=== PATIENT | male | born 1955 | race Caucasian/White ===

== ENCOUNTER 2016-12-08 18:25 | Emergency (ER) | payer BC ==
[2016-12-08 18:44] VITALS: TEMP 98
[2016-12-08] MEDS ORDERED: ONDANSETRON 4 MG/2 ML VIAL IVP STA (19:23)
[2016-12-08] MEDS ORDERED: KETOROLAC 30 MG/ML 1 ML VIAL IVP STA (19:23)
[2016-12-08] MEDS ORDERED: SODIUM CHLORIDE 0.9% 2,000 ML IV STA (19:23)
[2016-12-08] MEDS ORDERED: HYDROmorphone 1 MG/ML 1 ML SYRINGE IVP STA (19:23)
[2016-12-08 20:04] LABS: Basophils % (A) 1 %; CH 29.8; CHCM 32.7; Eosinophils # (A) 0.1 k/uL (0-0.7); Eosinophils % (A) 4 %; HCT 44.5 % (39.0-53.0); HDW 2.49; HGB 14.6 gm/dL (13.0-17.5); Luc # (Auto) 0.07; Luc % (Auto) 2; Lymphocytes # (A) 0.8 k/uL (1.0-4.8); Lymphocytes % (A) 25 %; MCH 30.1 pg (25.0-35.0); MCHC 32.8 g/dL (31.0-37.0); MCV 91.5 fL (80.0-100.0); Monocytes # (A) 0.2 k/uL (0-1.0); Monocytes % (A) 7 %; Neutrophils % (A) 61 %; RBC 4.86 m/uL (4.30-5.90); RDW 13.1 % (11.5-15.5); WBC 3.2 k/uL (3.8-10.6); WBC (Perox) 3.07
[2016-12-08 20:05] LABS: Appearance,Urine Clear (Clear); Bilirubin,Urine Negative (Negative); Glucose,Urine (UA) Negative (Negative); Ketones,Urine Negative (Negative); Leukocyte Esterase,Urine Negative (Negative); Nitrite,Urine Negative (Negative); Protein,Urine Negative (Negative); UA Billing (MACRO vs. MICRO) CHEM; Urobilinogen,Urine <2.0 mg/dL (<2.0)
--- NOTE | 2016-12-08 20:14 | XR ---
EXAMINATION TYPE: XR KUB DATE OF EXAM: 12/08/2016 COMPARISON: NONE HISTORY: Left-sided flank pain with history of nephrolithiasis TECHNIQUE: Single upright abdominal radiograph was obtained. FINDINGS: Slight dextroscoliotic curvature of the thoracolumbar spine is seen with degenerative valentin es at the lumbosacral junction. No radiopaque calcifications are seen within the abdomen or pelvis al though bowel gas partially obscures the renal shadows. Moderate amount of retained stool is seen thro ughout the ascending colon and hepatic flexure. Bowel is nondilated. IMPRESSION: 1. No evidence of radiopaque calculi although the renal shadows are partially obscured by overlying b owel. 2. Moderate amount of retained colonic stool in nondilated bowel.
[2016-12-08 20:19] LABS: ALT 45 U/L (21-72); AST 39 U/L (17-59); Alkaline Phosphatase 63 U/L (38-126); Amylase 86 U/L (30-110); Anion Gap 11 mmol/L; Blood Urea Nitrogen 23 mg/dL (9-20); Calcium 9.8 mg/dL (8.4-10.2); Carbon Dioxide 26 mmol/L (22-30); Chloride 104 mmol/L (98-107); Glucose 91 mg/dL (74-99); Non-African American GFR(MDRD) >60 (>60 ml/min/1.73 sqM); Potassium 4.7 mmol/L (3.5-5.1); Sodium 141 mmol/L (137-145); Total Bilirubin 0.8 mg/dL (0.2-1.3); Total Protein 7.1 g/dL (6.3-8.2)
--- NOTE | 2016-12-08 20:40 | ED ---
Abdominal Pain HPI - General Chief Complaint: Abdominal Pain Stated Complaint: POSS KIDNEY STONE Time Seen by Provider: 12/08/16 19:23 Source: patient, RN notes reviewed, old records reviewed Mode of arrival: ambulatory Limitations: no limitations - History of Present Illness Initial Comments: Pleasant 61 year old male with left flank pain for one week, reports he was doing lifting and hurt his right side of the back one week ago. Patient reports that he also has kidney stones and this pain feels similiar to kidney stones. Patient reports pain can come and go, and occasionally worse with position. Denies any fever, chills, nausea, vomiting, abdominal pain, chest pain, shortness of breath, changes in bowel or urination, peripheral paresthesias - Related Data Home Medications Medication Instructions Recorded Confirmed Adalimumab [Humira Crohn's] 40 mg SQ Q14D 12/08/16 12/08/16 rOPINIRole HCL [Requip] 3 mg PO HS 12/08/16 12/08/16 Previous Rx's Medication Instructions Recorded HYDROcodone/APAP 10-325MG [[place] 1 tab PO Q6H PRN #20 tab 12/08/16 10-325] Ketorolac [Toradol] 10 mg PO Q6HR #15 tab 12/08/16 Tamsulosin [Flomax] 0.4 mg PO DAILY #7 cap 12/08/16 Allergies Allergy/AdvReac Type Severity Reaction Status Date / Time wheat Allergy Dyspnea Verified 12/08/16 19:19 Review of Systems ROS Statement: Those systems with pertinent positive or pertinent negative responses have been documented in the HPI. ROS Other: All systems not noted in ROS Statement are negative. Past Medical History Past Medical History: No Reported History History of Any Multi-Drug Resistant Organisms: None Reported Additional Past Surgical History / Comment(s): shoulder lithotripsy Past Psychological History: No Psychological Hx Reported Smoking Status: Never smoker Past Alcohol Use History: Rare Past Drug Use History: None Reported General Exam - General Exam Comments Initial Comments: Well appearing 61 year old mle, no distress. Limitations: no limitations General appearance: alert, in no apparent distress Head exam: Present: atraumatic, normocephalic, normal inspection Eye exam: Present: normal appearance, PERRL, EOMI. Absent: scleral icterus, conjunctival injection, periorbital swelling ENT exam: Present: normal exam, mucous membranes moist Neck exam: Present: normal inspection. Absent: tenderness, meningismus, lymphadenopathy Respiratory exam: Present: normal lung sounds bilaterally. Absent: respiratory distress, wheezes, rales, rhonchi, stridor Cardiovascular Exam: Present: regular rate GI/Abdominal exam: Present: soft, normal bowel sounds. Absent: distended, tenderness, guarding, rebound, rigid Extremities exam: Present: normal inspection, full ROM, normal capillary refill. Absent: tenderness, pedal edema, joint swelling, calf tenderness Back exam: Present: normal inspection Neurological exam: Present: alert, oriented X3, CN II-XII intact Psychiatric exam: Present: normal affect, normal mood Skin exam: Present: warm, dry, intact, normal color. Absent: rash Course Vital Signs 12/08/16 12/08/16 18:41 20:55 Temperature 98.0 F Pulse Rate 78 85 Respiratory 18 16 Rate Blood Pressure 139/87 127/65 O2 Sat by Pulse 96 98 Oximetry Medical Decision Making - Medical Decision Making Pleasant 61 year old male with left flank pain for one week, reports he was doing lifting and hurt his right side of the back one week ago. Patient reports that he also has kidney stones and this pain feels similiar to kidney stones. Patient reports pain can come and go, and occasionally worse with position. Lab work is negative. PAtient given toradol and .5 dilaudid. PAtient given IV fluids. Discussed that negative blood work and no hematuria, patient likely has muscle skelettal related pain vs. kidney stone. Patient informed that we can preform cat scan, and patient refuses due to radiation. Risk and benefits discussed, and informed patient I can treat for kidney stone, similiarly for muscle back pain. Patient agrees to be discharged home and forgo CT. Patient agrees with treatment plan and will comply, discharged with pain medication, flomax for 2 days. - Lab Data Result diagrams: 12/08/16 19:40 12/08/16 19:40 Lab Results 12/08/16 12/08/16 12/08/16 Range/Units 19:40 19:40 19:40 WBC 3.2 L (3.8-10.6) k/uL RBC 4.86 (4.30-5.90) m/uL Hgb 14.6 (13.0-17.5) gm/dL Hct 44.5 (39.0-53.0) % MCV 91.5 (80.0-100.0) fL MCH 30.1 (25.0-35.0) pg MCHC 32.8 (31.0-37.0) g/dL RDW 13.1 (11.5-15.5) % Plt Count 215 (150-450) k/uL Neutrophils % 61 % Lymphocytes % 25 % Monocytes % 7 % Eosinophils % 4 % Basophils % 1 % Neutrophils # 2.0 (1.3-7.7) k/uL Lymphocytes # 0.8 L (1.0-4.8) k/uL Monocytes # 0.2 (0-1.0) k/uL Eosinophils # 0.1 (0-0.7) k/uL Basophils # 0.0 (0-0.2) k/uL Sodium 141 (137-145) mmol/L Potassium 4.7 (3.5-5.1) mmol/L Chloride 104 (98-107) mmol/L Carbon Dioxide 26 (22-30) mmol/L Anion Gap 11 mmol/L BUN 23 H (9-20) mg/dL Creatinine 1.20 (0.66-1.25) mg/dL Est GFR (MDRD) Af Amer >60 (>60 ml/min/1.73 sqM) Est GFR (MDRD) Non-Af >60 (>60 ml/min/1.73 sqM) Glucose 91 (74-99) mg/dL Calcium 9.8 (8.4-10.2) mg/dL Total Bilirubin 0.8 (0.2-1.3) mg/dL AST 39 (17-59) U/L ALT 45 (21-72) U/L Alkaline Phosphatase 63 (38-126) U/L Total Protein 7.1 (6.3-8.2) g/dL Albumin 4.5 (3.5-5.0) g/dL Amylase 86 (30-110) U/L Lipase 103 (23-300) U/L Urine Color Light Yellow Urine Appearance Clear (Clear) Urine pH 6.0 (5.0-8.0) Ur Specific Howard 1.010 (1.001-1.035) Urine Protein Negative (Negative) Urine Glucose (UA) Negative (Negative) Urine Ketones Negative (Negative) Urine Blood Negative (Negative) Urine Nitrite Negative (Negative) Urine Bilirubin Negative (Negative) Urine Urobilinogen <2.0 (<2.0) mg/dL Ur Leukocyte Esterase Negative (Negative) - Radiology Data Radiology results: report reviewed KUB negative for any acute process, no stone visualized. Disposition Clinical Impression: Back pain Disposition: HOME SELF-CARE Condition: Good Instructions: Kidney Stones (ED), Low Back Strain (ED) Additional Instructions: Follow-up with her primary care provider within the next 2-3 days. Patient take pain medication. Return to emergency department if any alarming signs or symptoms occur. Prescriptions: HYDROcodone/APAP 10-325MG [[place] 10-325] 1 tab PO Q6H PRN #20 tab PRN Reason: Pain Ketorolac [Toradol] 10 mg PO Q6HR #15 tab Tamsulosin [Flomax] 0.4 mg PO DAILY #7 cap Referrals: Rock Rainey MD [Primary Care Provider] - 1-2 days Time of Disposition: 20:37
[2016-12-08 20:56] VITALS: BP 127/65; PULSE 85; RESP 16
== END 2016-12-08 20:55 | disposition home or self-care (01) ==
LOC: EC 18:25
DX: M54.9 Dorsalgia, unspecified (principal); R10.9 Unspecified abdominal pain; Z79.899 Other long term (current) drug therapy; Z91.018 Allergy to other foods; Z98.890 Other specified postprocedural states
CPT/HCPCS: 99284; 96374; 96375 ×2; 96361; 36415; 80053; 82150; 83690; 85025; 81003; 74000; J2405; J1885; J1170

== ENCOUNTER → 2022-11-24 | Outpatient (CLI) | payer OTHER ==
--- NOTE | 2022-11-24 11:21 | XR ---
EXAMINATION TYPE: XR pelvis AP view DATE OF EXAM: 11/24/2022 COMPARISON: None HISTORY: Contusion low back and pelvis, fall TECHNIQUE: AP pelvis FINDINGS: Sacroiliac joints and symphysis pubis are normal. Femoral heads articular with the acetabul um. No acute fractures or dislocations are evident. Bowel gas is unremarkable. IMPRESSION: 1. No acute osseous abnormalities AP pelvis
--- NOTE | 2022-11-24 11:23 | XR ---
EXAMINATION TYPE: XR lumbar spine 2 or 3V DATE OF EXAM: 11/24/2022 COMPARISON: None HISTORY: Fall, pain TECHNIQUE: 3 view lumbar spine FINDINGS: 5 lumbar type vertebral bodies. Pedicles are intact. There is mild narrowing of the L5-S1 disc height . Remaining disc heights are preserved. Vertebral body heights are preserved. Alignment is unremarkab le. IMPRESSION: 1. Mild degenerative disc changes L5-S1.
== END | disposition home or self-care (01) ==
LOC: RADXRMAIN 10:33
PROVIDERS: ATTEND Emergency Medicine
DX: S30.0XXA Contusion of lower back and pelvis, initial encounter (principal)
CPT/HCPCS: 72100; 72170

== ENCOUNTER → 2023-07-26 | Outpatient (CLI) | payer MEDICARE, BC ==
--- NOTE | 2023-07-26 17:43 | CT ---
EXAMINATION TYPE: CT chest wo con CT DLP: 1328.80 mGycm, Automated exposure control for dose reduction was used. DATE OF EXAM: 07/26/2023 4:57 PM COMPARISON: Chest radiograph from 07/13/2023. CLINICAL INDICATION:Male, 68 years old with history of J84.10 PULMONARY FIBROSIS; PHH, chest cough af ter covid x2.5 years ago. poss pulmonary fibrosis. TECHNIQUE: High resolution contiguous 1.5 mm axial images of the chest were obtained in a supine and prone position. Noncontiguous 1 mm axial images at 10 mm intervals were obtained in supine position i n expiration. Coronal and sagittal reformatted images were obtained. No intravenous contrast was admi nistered. Contrast used: mL of (None if empty) Oral contrast used: (None if empty) FINDINGS: LUNGS: Scattered mild peripheral reticulation There is no evidence of focal consolidation, significan t groundglass opacity, honeycombing or architectural distortion in the lungs. No bronchiectasis. No a cute area of infiltrative or consolidative change. There is mild centrilobular emphysema greatest in the upper lung zones. LARGE AIRWAYS: Central airways are patent. PLEURA: No pleural effusion or thickening. HEART: Size within normal limits. MEDIASTINUM: No gross evidence of adenopathy. VASCULATURE: No aortic aneurysm. MUSCULOSKELETAL: Mild disc degeneration changes are present throughout the thoracolumbar spine. SOFT TISSUES/LYMPH NODES: Unremarkable. LOWER NECK: No significant findings. UPPER ABDOMEN: No significant findings. IMPRESSION: Mild scattered reticulation along the periphery which could represent sequela of prior atypical pneum onia. No evidence for fibrosis or honeycombing. Follow up recommendations for incidental pulmonary nodules, if there are any, are per [employer] or [employer]. https://radiopaedia.org/articles/opmzqlrxrq-qjnwrtl-jsvvdcmmn-[email or web address]?lang=us
== END | disposition home or self-care (01) ==
LOC: RADCTMAIN 16:40
PROVIDERS: ATTEND Internal Medicine Critical Care Medicine
DX: J84.10 Pulmonary fibrosis, unspecified (principal); R91.8 Other nonspecific abnormal finding of lung field
CPT/HCPCS: 71250

== ENCOUNTER → 2023-09-22 | Outpatient (CLI) | payer OTHER ==
--- NOTE | 2023-09-22 10:10 | XR ---
EXAMINATION TYPE: XR Hip Bilateral and AP pelvis DATE OF EXAM: 09/22/2023 COMPARISON: NONE HISTORY: Worsening pain since fall 2010 months prior. Impression: There is no fracture, subluxation or dislocation. The joint spaces appear preserved.
== END | disposition home or self-care (01) ==
LOC: RADXRMAIN 09:38
PROVIDERS: ATTEND Emergency Medicine
DX: S30.0XXD Contusion of lower back and pelvis, subsequent encounter (principal)
CPT/HCPCS: 73521

== ENCOUNTER → 2023-11-10 | Outpatient (CLI) | payer OTHER ==
--- NOTE | 2023-11-11 06:55 | MR ---
EXAMINATION TYPE: MR hip LT wo con DATE OF EXAM: 11/10/2023 COMPARISON: Bilateral hip and pelvic x-ray September 22, 2023. HISTORY: Low back pain, left hip pain, injury fell on rail. Lumbar region radiculopathy and left hip pain. Standard multiplanar, multisequence MRI departmental protocol Multiplanar, multisequence images of the pelvis focusing on left hip were acquired without contrast. Diffusion weighted imaging was performed. FINDINGS: Mild to moderate axial joint space loss in both hips is seen with mild to moderate acetabul ar spurring. Etzdh-fs-nsjfjnow size left greater than right hip joint effusions are seen. There is se rpiginous diminished T1 signal in the right femoral head superiorly consistent with avascular necrosi s. Larger length serpiginous T1 signal seen superior aspect of the left femoral head. There is hetero geneous increased T2 signal throughout the left femoral head extending into the femoral neck. No bony fragmentation currently. Muscle bulk is maintained bilaterally. No groin adenopathy. There is small to moderate-sized fat-containing left inguinal hernia and moderate to large sized fat-containing righ t inguinal hernia. Prostate gland is normal in size. Urinary bladder is within normal limits. No abnormal bowel dilatati on. No free fluid in the pelvis. IMPRESSION: Avascular necrosis is present bilaterally with more severe findings noted in the left hip versus right hip as detailed above.
--- NOTE | 2023-11-11 09:26 | MR ---
EXAMINATION TYPE: MR lumbar spine wo con DATE OF EXAM: 11/10/2023 COMPARISON: None HISTORY: Low back pain, left hip pain, injury fell on rail. CONTRAST: 0 mL intravenous Gadavist. TECHNIQUE: Multiplanar, multisequence images of the lumbar spine were acquired. FINDINGS: L5-S1: No significant disc bulge or disc herniation. No spinal canal stenosis. No foraminal stenosi s. Disc desiccation present. L4-L5: Broad-based disc herniation is present with subligamentous disc extension. No spinal canal st enosis. No foraminal stenosis. Disc desiccation present L3-L4: No significant disc bulge or disc herniation. No spinal canal stenosis. No foraminal stenosi s. Disc desiccation present L2-L3: No significant disc bulge or disc herniation. No spinal canal stenosis. No foraminal stenosi s. L1-L2: No significant disc bulge or disc herniation. No spinal canal stenosis. No foraminal stenosi s. Disc desiccation present T12-L1: No significant disc bulge or disc herniation. No spinal canal stenosis. No foraminal stenos is. IMPRESSION: 1. Small subligamentous disc herniation is broad-based at L4-5 with mild anterior thecal sac compress ion. No stenosis
== END | disposition home or self-care (01) ==
LOC: RADMRIMAIN 17:10
PROVIDERS: ATTEND Orthopaedic Surgery
DX: M51.16 Intervertebral disc disorders with radiculopathy, lumbar region (principal); M87.88 Other osteonecrosis, other site
CPT/HCPCS: 72148

== ENCOUNTER → 2023-12-01 | Outpatient (CLI) | payer MEDICARE, BC ==
[2023-12-01 15:16] LABS: INR 0.9 (<1.2); Partial Thromboplastin Time 22.1 sec (22.0-30.0)
[2023-12-01 18:15] LABS: HCT 42.2 % (39.6-50.0); HGB 13.3 g/dL (13.0-17.0); MCH 29.6 pg (27.0-32.0); MCHC 31.5 g/dL (32.0-37.0); Mean Platelet Volume 10.6 FL (9.5-12.2); NRBC Per 100 WBC 0 X 10*3/uL (0.00-0.01); Platelet Count 214 X 10*3/uL (140-440); RBC 4.49 X 10*6/uL (4.40-5.60); RDW 13.9 % (11.5-14.5); WBC 4.81 X 10*3/uL (4.50-10.00)
[2023-12-01 19:20] LABS: ALT 37 U/L (10-49); AST 22 U/L (14-35); Albumin 4.5 g/dL (3.8-4.9); Alkaline Phosphatase 87 U/L (41-126); BUN/Creat Ratio 17.25 Ratio (12.00-20.00); Blood Urea Nitrogen 20.7 mg/dL (9.0-27.0); Calcium 9.9 mg/dL (8.7-10.3); Carbon Dioxide 25.6 mmol/L (21.6-31.8); Chloride 107 mmol/L (96-109); Globulin 1.8 g/dL (1.6-3.3); Glucose 81 mg/dL (70-110); Potassium 4.5 mmol/L (3.5-5.5); Sodium 144 mmol/L (135-145); Total Bilirubin 0.4 mg/dL (0.3-1.2); Total Protein 6.3 g/dL (6.2-8.2)
== END | disposition home or self-care (01) ==
LOC: LABPAT 14:01
PROVIDERS: ATTEND Orthopaedic Surgery
DX: Z01.818 Encounter for other preprocedural examination (principal); M16.12 Unilateral primary osteoarthritis, left hip; Z22.322 Carrier or suspected carrier of Methicillin resistant Staphylococcus aureus; I42.2 Other hypertrophic cardiomyopathy; I49.8 Other specified cardiac arrhythmias; R94.31 Abnormal electrocardiogram [ECG] [EKG]
CPT/HCPCS: 36415; 80053; 85027; 85610; 85730; 86850; 86900; 86901; 87070; 93005

== ENCOUNTER 2023-12-12 09:12 | Day surgery (SDC) | payer BC, MEDICARE ==
[2023-12-07 13:10] VITALS: BMI 27.7
[~2023-12-12 09:12] MED LIST: HYDROmorphone 0.5 MG/0.5 ML SYRINGE IVP PRN; TRANEXAMIC 1,000 MG/100ML-NACL 1,000 MG in SALINE 1 100ML.BAG IVPB PRN; droPERidol 5 MG/2 ML VIAL IVP ONE
[2023-12-12] MEDS: LIDOCAINE 1% (10MG/ML) FOR IV START INTRADERMA PRN (10:07)
[2023-12-12] MEDS: LACTATED RINGERS 1,000 ML IV SCH (10:08)
[2023-12-12] MEDS: MELOXICAM 7.5 MG TAB PO PRN (10:08)
[2023-12-12] MEDS: IV FLUID CONTINUATION 1,000 ML IV ONE ×2 (10:08→15:52)
[2023-12-12] MEDS: ACETAMINOPHEN TAB 500 MG TAB PO PRN (10:09)
[2023-12-12] MEDS: DEXAMETHASONE SOD PHOSPHATE 4 MG/ML 1 ML VIAL IV ONE (10:09)
[2023-12-12] MEDS: GABAPENTIN 300 MG CAP PO PRN (10:09)
[2023-12-12] MEDS: ONDANSETRON 4 MG/2 ML VIAL IVP ONE (10:10)
[2023-12-12 10:28] LABS: Glucose,Whole Blood 100 mg/dL (70-110)
[2023-12-12] MEDS: MIDAZOLAM 2 MG/2 ML VIAL IVP ONE (10:47)
--- NOTE | 2023-12-12 10:54 | P.ANPRN ---
Procedure Note - Anesthesia - Nerve Block Performed Left Omar Single Time Out Performed: Yes ([id number]) Date of Procedure: 12/12/23 Procedure Start Time: 10:50 Procedure Stop Time: 10:55 Location of Patient: PreOp Indication: Analgesia, Requested by Surgeon Sedation Type: Sedate with meaningful contact maintained Preparation: Sterile Prep, Sterile Dressing Position: Supine Catheter: None Needle Types: Pajunk Needle Gauge: 21 Ultrasound used to visualize needle placement: Yes Ultrasound used to observe medication spread: Yes Injectate: 0.5% Ropivacaine (see comment for volume) (20 ml mixed with 4 mg of dexamethasone) Blood Aspirated: No Pain Paresthesia on Injection Noted: No Resistance on Injection: Normal Image Stored and Saved: Yes Events: Uneventful and Well Tolerated
[2023-12-12] MEDS ORDERED: HYDROmorphone 0.5 MG/0.5 ML SYRINGE IVP PRN ×3 (10:56)
[2023-12-12] MEDS ORDERED: MAGNESIUM HYDROXIDE 2,400 MG/30 ML CUP PO PRN (10:56)
[2023-12-12] MEDS ORDERED: NALOXONE 0.4 MG/ML 1 ML VIAL IV PRN (10:56)
[2023-12-12] MEDS ORDERED: HYDROcodone/APAP 7.5-325MG 1 EACH TAB PO PRN (10:57)
[2023-12-12] MEDS ORDERED: SODIUM CHLORIDE 0.9% 1,000 ML IV SCH (11:00)
[2023-12-12] MEDS ORDERED: ROPIVACAINE 5 MG/ML 30 ML VIAL ONE (11:24)
[2023-12-12] MEDS ORDERED: LIDOCAINE 1% INJ 10MG/ML (20 ML MDV) ONE (11:24)
[2023-12-12] MEDS ORDERED: TRANEXAMIC 1,000 MG/100ML-NACL PREMIX BAG ONE (11:24)
[2023-12-12] MEDS ORDERED: PROPOFOL 10 MG/ML 20 ML VIAL IV ONE (11:24)
[2023-12-12] MEDS ORDERED: fentaNYL (PF) 50 MCG/ML 2 ML AMP ONE (11:24)
[2023-12-12] MEDS ORDERED: MIDAZOLAM 2 MG/2 ML VIAL ONE (11:24)
[2023-12-12] MEDS ORDERED: GLYCOPYRROLATE 0.2 MG/ML 2 ML VIAL ONE (11:24)
[2023-12-12] MEDS ORDERED: ROCURONIUM 10 MG/ML (5 ML VIAL) IV ONE (11:24)
[2023-12-12] MEDS ORDERED: HYDROmorphone (PF) 1 MG/ML ONE (11:24)
[2023-12-12] MEDS ORDERED: NEOSTIGMINE 1 MG/ML 10 ML VIAL ONE (11:24)
[2023-12-12] MEDS ORDERED: DEXAMETHASONE SOD PHOSPHATE 4 MG/ML 1 ML VIAL ONE (11:24)
[2023-12-12] MEDS: ceFAZolin 1,000 MG in SODIUM CHLORIDE 0.9% 1,000 ML IRRIGATION ONE (11:27)
[2023-12-12] MEDS: ROPIVACAINE 5 MG/ML 30 ML VIAL MISCELLANE ONE (11:53)
--- NOTE | 2023-12-12 12:37 | P.OP ---
Date of Procedure: 12/12/23 Preoperative Diagnosis: severe osteoarthritis left hip Postoperative Diagnosis: severe osteoarthritis left hip Procedure(s) Performed: left total hip arthroplasty with a direct anterior approach Implants: [employer] Polarstem standard size 6 with a collar [employer] R3, 3 hole hemispherical acetabular shell, 56 mm [employer] Reflection 6.5 mm cancellus screw, 20 mm, 25 mm [employer] R3, XLPE 20 acetabular liner [employer] Oxinium femoral head 36 mm, +4 All components were press-fit. The articulation is Oxinium on polyethylene. Anesthesia: GETA Surgeon: Jacinto Armenta [employer] Receivable Specialist #1: Yamile Nava Estimated Blood Loss (ml): 300 Pathology: none sent Condition: stable Disposition: PACU Indications for Procedure: After failure of conservative treatment we discussed the surgical and nonsur gical treatment options at length. Patient wishes to proceed with a total hip arthroplasty with a direct anterior approach. Complications specific to this procedure were discussed at length, including but not limited to infection, leg length discrepancy, dislocation, nerve injury, and fracture. Covid-19 was also discussed at length with the patient, and they are aware of the current policies and procedures. The patient was given the option of delaying surgery, but they elect to proceed knowing these risks. Patient is aware of all these complications and informed consent was obtained Operative Findings: the operative findings are consistent with severe osteoarthritis of the left hip Description of Procedure: The patient was seen and evaluated in the preoperative area and the consent was reviewed. The operative site was marked with a skin marker. The patient verified the procedure and operative site. A HENRIQUE block was placed by anesthesia in the preoperative area. The patient was then brought to the operating room and given preoperative antibiotics intravenously. 1 g of Tranexamic acid was also given intravenously. A general anesthetic was administered by the anesthesia department. The patient was then placed on the [place] table with the bony prominences well-padded. The hip area was then prepped with a ChloraPrep solution and draped in the usual sterile fashion. A universal timeout was then performed, which confirmed the patient's name, surgical site, ALLERGIES, and procedure being performed on the consent. Next the incision site was located at 1 cm distal and 4 cm lateral to the anterior superior iliac spine. The skin and subcutaneous tissues were sharply incised. Incision was carefully dissected down to the fascia overlying the tensor fascia jerad muscle. This fascia was then incised in line with the muscle fibers. Care was taken to stay laterally in order to avoid injuring the lateral femoral cutaneous nerve. Next, using blunt finger dissection, the tensor fascia jerad muscle was dissected off its investing fascia. The muscle was then carefully retracted laterally with a cobra retractor over the lateral neck of the femur. Next, the circumflex vessels were identified and cauterized using the Aquamantis device. The anterior hip capsule was then exposed. The capsule was then opened and an inverted T fashion. The retractors were then placed intracapsularly. The retractors were maintained intracapsular throughout the procedure. The proximal femur was then visualized. Fluoroscopic x-rays were then taken in order to evaluate the preoperative leg lengths. A small amount of traction was placed on the leg. The femoral neck was then osteotomized at the appropriate level above the lesser trochanter. A small wedge of bone was then removed from the remaining femoral head. Next, using a corkscrew the femoral head was removed from the acetabulum. On gross visual inspection, the femoral head had complete loss of articular cartilage and multiple periarticular osteophytes. The femoral head was then measured. Attention was then turned to the acetabulum. The acetabulum was exposed and any remaining labrum was excised. Sequential reaming of the acetabulum was performed using fluoroscopic guidance until there was a good bed of bleeding cancellus bone. When the appropriate size was reached, a trial was then placed. The position and fit of the trial was checked with fluoroscopy. The trial was then removed. Then, using fluoroscopic guidance, the final implant was impacted at 20 of anteversion and 40 of abduction, and fully seated in the acetabulum. 2 screws were then placed in the acetabulum. Again fluoroscopy was used to check position of the screws. Next, the liner was then impacted, with a 20 elevated liner located in the anterior superior quadrant. Component locking was confirmed. Attention was then directed to the femur. With the aid of the [place] table, the femur was externally rotated to approximately 130, extended, and adducted under the opposite leg. A side hook was then placed under the proximal femur, and the side hook elevator was used to elevate the proximal femur while releasing the capsule. Retractors were then placed. A capsular release was performed, as well as a release of the conjoined tendon, which afforded excellent vi sualization of the proximal femur. Next, a box osteotome was used to lateralize the proximal femur. A hand edger was then used to locate the femoral canal. Sequential broaching was then performed with appropriate size which afforded excellent fixation in the proximal femur. A trial was then placed with appropriate head and neck, and the hip was gently reduced with the aid of the [place] table. Fluoroscopy was then used to check position of the components, as well as to evaluate the leg lengths and offset. The leg lengths and offset were measured as closely as possible to ensure stability of the hip. The hip was then gently dislocated and the trials were then removed. Final implants were then impacted and the hip was again reduced. Final fluoroscopic x-rays confirmed that the components were in anatomic position. The leg lengths and offset were measured and were found to coincide with the trial measurements. The hip was also taken through range of motion, and found to be stable. The hip was then copiously irrigated with antibiotic solution with pulsatile lavage. The hip was then irrigated with Irrisept solution. The soft tissues were then injected with a ropivacaine solution. A second dose of 1 g of Tranexamic acid was also given intravenously. The fascia was then closed with 2-0 strata fix suture. The subcutaneous tissue was closed with 3-0 Vicryl. The subcuticular tissue was closed with 3-0 strata fix suture. The skin was then closed with Exofin skin glue. After the glue and dried, and Optifoam silver impregnated dressing was applied. The patient was th en transferred to the recovery room in stable condition. The hospital nursing assistant MADINA Ybarra was required due to the complexity of surgery, and the need for skilled cardiovascular surgical tech for positioning, draping, exposure, retraction, and closure of the wound.
[2023-12-12] MEDS: LACTATED RINGERS 1,000 ML IV ONE (12:44)
--- NOTE | 2023-12-12 12:58 | FL ---
EXAMINATION TYPE: FL guidance operating room, XR Hip Limited LT Intraoperative/procedural fluoroscopi c services were provided. Total fluoroscopy time is 41.7 seconds with a total of 4 submitted images t o PACS. Please see the operative/procedural note for further details. DAP: 2.5291 Gycm2
[2023-12-12 13:01] VITALS: TEMP 97.1
[2023-12-12 14:07] LABS: Glucose,Whole Blood 107 mg/dL (70-110)
[2023-12-12] MEDS: HYDROcodone/APAP 7.5-325MG 1 EACH TAB PO PRN (14:49)
--- NOTE | 2023-12-12 15:00 | XR ---
EXAMINATION TYPE: XR Hip Limited AP LT DATE OF EXAM: 12/12/2023 Comparison: None Clinical History: 68-year-old male Status post hip surgery, assess surgical alignment Findings: Image shows placement of left total hip arthroplasty. Acetabular cup and femoral stem components of t he prosthesis appear well seated without periprosthetic fracture. Alignment grossly anatomic. Soft ti ssue air related to recent operation. Impression: Uncomplicated postoperative appearance left total hip arthroplasty.
[2023-12-12] MEDS ORDERED: LIDOCAINE 1% (10MG/ML) FOR IV START INTRADERMA PRN (15:40)
[2023-12-12] MEDS: ONDANSETRON 4 MG/2 ML VIAL IVP PRN (15:46)
[2023-12-12 15:58] VITALS: BP 130/81; PULSE 76; RESP 16
[2023-12-12] MEDS ORDERED: SENNOSIDES-DOCUSATE SODIUM 1 EACH TAB PO SCH (21:00)
[2023-12-13] MEDS ORDERED: APIXABAN 2.5 MG TABLET PO SCH (09:00)
== END 2023-12-12 16:14 | disposition home health service (06) ==
LOC: OR 09:12
PROVIDERS: ATTEND Orthopaedic Surgery
DX: M16.12 Unilateral primary osteoarthritis, left hip (principal); E78.5 Hyperlipidemia, unspecified; G47.33 Obstructive sleep apnea (adult) (pediatric); G25.81 Restless legs syndrome; Z87.442 Personal history of urinary calculi; Z79.52 Long term (current) use of systemic steroids; Z79.82 Long term (current) use of aspirin; Z79.899 Other long term (current) drug therapy
CPT/HCPCS: 97162; 64447; 73501; 27130; C1776; J2250; J1100; J2710; J0690 ×2; J2405; J2001; J3010; J1170; J2795; J2704

== ENCOUNTER → 2024-05-31 | Outpatient (CLI) | payer MEDICARE ==
--- NOTE | 2024-06-01 08:35 | CT ---
EXAMINATION TYPE: CT chest wo con DATE OF EXAM: 05/31/2024 COMPARISON: 07/26/2023 CLINICAL INDICATION: Male, 68 years old with history of J84.9 INTERSTITIAL PULMONARY DISEASE, UNSPECI FIED; PHH, interstitial lung disease, h/o COVID x3 years ago since then has lung problems TECHNIQUE: CT scan of the thorax is performed without IV contrast. CT DLP: [address] CTDI: mGy Automated exposure control for dose reduction was used. FINDINGS: There are a few scattered stable juxtapleural nodules in the upper lobes bilaterally. There is a new subpleural parenchymal nodule in the left upper lobe measuring 9 mm. There are mild scattered interstitial changes in the lung bases and there is mild bronchiectasis. There is no airspace consolidation. There is no pleural effusion or pneumothorax. The great vessels the chest are normal and there is no mediastinal, hilar or axillary adenopathy. Limited scanning through the upper abdomen reveals no gross abnormality. The osseous structures are intact. IMPRESSION: 1. New 9 mm nodule in the left lung apex. Neoplasm not excluded in 3 month follow-up CT thorax is rec ommended to confirm stability. 2. Mild chronic changes as described above. 3. No acute cardiopulmonary disease. [facility], , 06/01/2024 8:33 AM
== END | disposition home or self-care (01) ==
LOC: RADCTMAIN 15:06
PROVIDERS: ATTEND Internal Medicine Critical Care Medicine
DX: J84.9 Interstitial pulmonary disease, unspecified (principal); R91.1 Solitary pulmonary nodule; J47.9 Bronchiectasis, uncomplicated; Z86.16 Personal history of COVID-19
CPT/HCPCS: 71250

== ENCOUNTER → 2024-11-15 | Outpatient (CLI) | payer MEDICARE ==
[2024-11-15 15:55] LABS: African American GFR (CKD) 83 (>60 ml/min/1.73 sqM); Blood Urea Nitrogen 21 mg/dL (9-20); Non-African American GFR(CKD) 72 (>60 ml/min/1.73 sqM)
--- NOTE | 2024-11-15 19:18 | CT ---
EXAMINATION TYPE: CT chest w con DATE OF EXAM: 11/15/2024 4:51 PM COMPARISON: Previous CT chest study 05/29/2024. CLINICAL INDICATION: Male, 69 years old with history of R91.1 solitary pulmonary nodule; PHH, follow up lung nodule TECHNIQUE: Multiple axial images were obtained through the chest. Sagittal and coronal reformats were created for review. MIP was performed on a separate workstation. Contrast used:100 mL of Isovue 300 with IV Contrast (None if empty) CT DLP: 626 mGycm, Automated exposure control for dose reduction was used. FINDINGS: LUNGS/ PLEURA: The lung parenchyma appears unremarkable. Previously described 9 mm nodule in the lef t lung apex has resolved prior study and likely reflected an infectious or inflammatory etiology. No suspicious pulmonary nodule or pulmonary mass identified. AIRWAY: Patent and unremarkable. HEART: Size within normal limits. MEDIASTINUM: No gross evidence of adenopathy. VASCULATURE: No aortic aneurysm. MUSCULOSKELETAL: No acute osseous abnormalities SOFT TISSUES/LYMPH NODES: Unremarkable. LOWER NECK: No significant findings. UPPER ABDOMEN: No significant acute findings. Simple cyst in the right hepatic lobe and left kidney. Small hilar hernia. IMPRESSION: Previously described 9 mm nodule left lung apex has resolved prior study likely reflected an infectio us or inflammatory etiology. No suspicious pulmonary nodule or pulmonary mass identified. [facility], , 11/15/2024 7:15 PM
== END | disposition home or self-care (01) ==
LOC: RADCTMAIN 14:55
PROVIDERS: ATTEND Internal Medicine Critical Care Medicine
DX: R91.1 Solitary pulmonary nodule (principal)
CPT/HCPCS: 82565; 84520; 71260; 36415; Q9967